=== PATIENT | male | born 1985 | race African-American/Black ===

== ENCOUNTER 2022-10-12 18:39 | Emergency (ER) | payer OTHER ==
[~2022-10-12 18:39] MED LIST: DOXYCYCL HYC100 M1 PO; FLUC150T PO; NYST100010 EX; NYST100016 TOP; PERMETHRIN5 % EX; TRIA0.1C5 EX; TRIA0.1O13 TOP; TRIM800T12 PO
[2022-10-12 18:49] VITALS: BP 147/82; TEMP 97.2
[2022-10-12 19:56] LABS: PLATELET COUNT 206 K/uL (142-355)
== END 2022-10-12 22:58 | disposition home or self-care (01) ==
LOC: ED 18:39
PROVIDERS: Family Medicine
DX: R11.2 Nausea with vomiting, unspecified (principal); N39.0 Urinary tract infection, site not specified; T50.991A Poisoning by other drugs, medicaments and biological substances, accidental (unintentional), initial encounter; F17.210 Nicotine dependence, cigarettes, uncomplicated; F10.90 Alcohol use, unspecified, uncomplicated
CPT/HCPCS: 36415; 80053; 80307; 81002; 82150; 83690; 85027; 87490; 87590; 93005; 96361; 96365; 96376; 99284; J0696; J2405